=== PATIENT | male | born 1980 | race African-American/Black ===

== ENCOUNTER 2023-03-14 22:22 | Emergency (ER) | payer MEDICAID ==
[~2023-03-14] VITALS: Ht 177.8 cm; Wt 101.0 kg
[2023-03-14 22:34] VITALS: O2SAT 98
[2023-03-15] MEDS ORDERED: DIPHENHYDRAMINE 50MG/ML VIAL IM ONE (01:00)
[2023-03-15] MEDS ORDERED: HALOPERIDOL LACTATE 5MG/ML VIAL IM ONE (01:00)
[2023-03-15] MEDS ORDERED: LORAZEPAM 2MG/ML INJ IM ONE (01:00)
[2023-03-15 01:06] LABS: DIFFERENTIAL COMMENT 0; EOSINOPHILS % 0.2 % (0.0-5.0); HEMATOCRIT. 41.6 % (42.0-52.0); HEMOGLOBIN. 12.9 g/dL (14.0-18.0); LYMPHOCYTES % 23.9 % (20.0-50.0); MEAN CORPUSCULAR HEMOGLOBIN 24.9 pg (28.0-32.0); MEAN CORPUSCULAR VOLUME 80.3 fL (80.0-94.0); MONOCYTES % 7.3 % (2.0-8.0); NEUTROPHILS % 67.6 % (40.0-76.0); PLATELET 292 x1000/uL (130-400); RED BLOOD CELL COUNT 5.18 mill/uL (4.7-6.1); RED CELL DISTRIBUTION WIDTH 16.6 % (11.6-14.6); WHITE BLOOD COUNT 4.5 x1000/uL (4.5-11.0)
[2023-03-15 01:25] LABS: AMMONIA 102 uMol/L (<32)
[2023-03-15 01:27] LABS: ACETAMINOPHEN < 2 ug/mL (10-30); ALANINE AMINOTRANSFERASE 27 IU/L (10-49); ALBUMIN 4.7 g/dL (3.2-4.8); ASPARTATE AMINOTRANSFERASE 51 IU/L (<34); BILIRUBIN TOTAL 0.4 mg/dL (0.1-1.0); CALCIUM 9.3 mg/dL (8.7-10.4); CARBON DIOXIDE 19 mEq/L (21-32); CHLORIDE 108 mEq/L (98-107); CREATINE KINASE 904 IU/L (46-171); CREATININE 1.1 mg/dL (0.6-1.3); ETHANOL BLOOD 90 mg/dL (<10); GLUCOSE 128 mg/dL (70-105); POTASSIUM 3.5 mEq/L (3.5-5.1); PROTEIN TOTAL 8.6 g/dL (6.0-8.3); SODIUM 144 mEq/L (136-145); UREA NITROGEN BLOOD 10 mg/dL (9-23)
[2023-03-15 02:04] LABS: TROPONIN I HIGH SENSITIVITY 360 ng/L (3.0-53)
[2023-03-15 02:05] LABS: LACTIC ACID 4.8 mmol/L (0.4-2.0)
[2023-03-15] MEDS ORDERED: HYDRALAZINE 20MG/ML VIAL IV NR (02:45)
[2023-03-15] MEDS ORDERED: ASPIRIN 300MG SUPP PR NR (02:45)
[2023-03-15] MEDS ORDERED: LACTULOSE ENEMA 1,000ML BOTTLE PR NR (02:45)
[2023-03-15] MEDS ORDERED: SODIUM BICARBONATE 8.4% 1 MEQ/ML 50ML SYR IV NR (02:45)
[2023-03-15 03:08] LABS: CLARITY URINE CLEAR (CLEAR); COLOR URINE YELLOW (YELLOW); GLUCOSE URINE NEGATIVE (NEGATIVE); KETONES URINE TRACE (NEGATIVE); LEUKOCYTE ESTERASE URINE NEGATIVE (NEGATIVE); NITRITE URINE NEGATIVE (NEGATIVE); OCCULT BLOOD URINE 2+ (NEGATIVE); PH URINE 5.5 (4.5-8.0); PROTEIN URINE 2+ (NEGATIVE); SPECIFIC GRAVITY URINE 1.013 (1.005-1.030); UROBILINOGEN URINE 0.2 E.U./dL (0.2-1.0)
[2023-03-15 04:34] LABS: *AMPHETAMINES SCREEN URINE NEGATIVE (NEGATIVE); *BARBITURATES SCREEN URINE NEGATIVE (NEGATIVE); *BENZODIAZEPINES SCREEN URINE NEGATIVE (NEGATIVE); *COCAINE SCREEN URINE NEGATIVE (NEGATIVE); CANNABINOID URINE SCREEN PRESUMPTIVE POSITIVE (NEGATIVE); ECSTASY MDMA SCREEN URINE NEGATIVE (NEGATIVE); METHADONE URINE SCREEN Neg (NEGATIVE); OPIATES URINE SCREEN NEGATIVE (NEGATIVE); PHENCYCLIDINE URINE SCREEN NEGATIVE (NEGATIVE)
[2023-03-15 05:03] LABS: BACTERIA URINE NONE SEEN; RBC URINE 0-2 /hpf (0-2); SQUAMOUS EPITHELIAL CELL URINE NONE SEEN /lpf (RARE/1+); WBC URINE 0-2 /hpf (0-2)
[2023-03-15 05:57] VITALS: BP 248/134; PULSE 107; RESP 28; TEMP 98.4
== END 2023-03-15 11:19 | disposition admitted as inpatient to this hospital (09) ==
LOC: ER 22:22 → EDBEDREQ 03-15 04:29 → EDBEDREQTM 03-15 04:29 → ER 03-15 11:19
DX: R41.82 Altered mental status, unspecified (principal); F10.129 Alcohol abuse with intoxication, unspecified; K76.82 Hepatic encephalopathy; I16.0 Hypertensive urgency; I21.4 Non-ST elevation (NSTEMI) myocardial infarction
CPT/HCPCS: 36415 ×2; 71045; 70450 ×2; 93005; 99285; 80053; 80305; 81003; 80307; 80329; 80320; 82140; 82550; 82962; 83880; 83605; 85025; 84484; 96372; 96374; 96375; J1200; J1630; J0360; J2060; J3490; Z7610 ×2; G0480